=== PATIENT | male | born 1950 | race Caucasian/White ===

== ENCOUNTER 2023-08-10 10:44 | Outpatient (AMB) | payer MEDICARE, SELFPAY ==
--- NOTE | 2023-08-10 10:46 | HO.NEPHOV_ITS ---
HPI HPI Comments History of Present Illness Details I had the pleasure of seeing Aníbal in consultation for proteinuria. He is not a diabetic or hypertensive. He has been having mild proteinuria for a few years. He denies any family history of proteinuria. There is no family history of any ESRD, renal transplantation, sensorineural deafness, microscopic hematuria. Patient himself has no history of microscopic hematuria but has been having some hearing impairment. He denies joint swellings, photosensitivity, skin rashes, epistaxis, hemoptysis, hematemesis, melena, renal calculus, new bone or back pain, history of high serum calcium or pedal edema. He has no history of vascular disease or eye symptoms. His serum creatinine has been normal. He has recently had a ultrasound of the abdomen which only showed fatty liver. He has history of pulmonary nodules which had been followed up closely. He does not take any excessive nonsteroidal anti-inflammatory medications. 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 Biceps tendonitis on right Surgical History (Updated 08/10/23 @ 10:50 by Melinda Jama MA) S/P rotator cuff repair History of inguinal hernia repair Family History Mother Breast cancer Father Stroke Diabetes mellitus Social History Alcohol intake: current Patient Tobacco Use Status: Former Tobacco user Substance Use Type: Marijuana Vital Signs 08/10/23 10:50 Height 5 ft 10 in Weight 225 lb 4 oz BMI 32.3 BP 126/72 Blood Pressure Location Lt brachial Position Sitting Pulse 87 Pulse Source Pulse Oximeter Pulse Oximetry (%) 96 Oxygen Delivery Method Room Air Physical Exam Vital Signs: Last Vital Signs Pulse 87 08/10/23 10:50 BP 126/72 08/10/23 10:50 Pulse Ox 96 08/10/23 10:50 Oxygen Delivery Method Room Air 08/10/23 10:50 BMI result Body Mass Index 32.3 Const General: comfortable and no acute distress Orientation/consciousness: patient oriented x3 HEENT Head: Yes normocephalic Mouth: Normal oral and palatal mucosa present Eyes EOM: EOMs intact bilaterally Neck Neck: Yes supple Resp Auscultation: clear to auscultation bilaterally Cardio Jugular venous distension: no JVD Rate: regular rate GI Palpation (GI): Soft to palpation Auscultation: normal bowel sounds General: Yes no CVA tenderness Back/Spine/Pelvis Back: no CVA tenderness Skin General skin exam: no rashes or lesions noted Neuro General: patient oriented x3 and moves all extremities Extrem General: Yes no pedal edema Assessment & Plan Assessment & Plan (1) Proteinuria: Code(s): R80.9 - Proteinuria, unspecified Qualifiers: Proteinuria type: other Qualified Code(s): R80.8 - Other proteinuria Plan Aníbal has mild proteinuria for a long time, etiology of which has not been delineated yet. He is not a diabetic hypertensive. He recently had a ultrasound of the abdomen which only showed fatty liver. I have ordered extensive workup including 24 hour urine for protein as well as hemoglobin A1c. There is no indication for initiation of JEFF-inhibitor or ARB now. Based on data I shall decide whether he needs a renal biopsy. All these have been discussed in extensive detail. I answered all his questions. Follow-up appointment given Orders: Orders Protein, 24 Hr Urine Group Today R80.9 - Proteinuria, unspecified Proteinase 3 PR3 Antibodies Today R80.9 - Proteinuria, unspecified Myeloperoxidase Antibody Today R80.9 - Proteinuria, unspecified Neutrophil Cytoplasma Ab Today R80.9 - Proteinuria, unspecified Immunofixation Pnl, Serum Today R80.9 - Proteinuria, unspecified Phospholipase A2 Receptor Pnl Today R80.9 - Proteinuria, unspecified Prothrombin Time INR Today R80.9 - Proteinuria, unspecified Hemoglobin A1c Today R80.9 - Proteinuria, unspecified Immunofixation, Random Urine Today R80.9 - Proteinuria, unspecified Anti Glomerular Basement Memb Today R80.9 - Proteinuria, unspecified Anti DNA DS Antibody Today R80.9 - Proteinuria, unspecified Complement C3 Today R80.9 - Proteinuria, unspecified Complement C4 Today R80.9 - Proteinuria, unspecified Protein Electrophoresis, Serum Today R80.9 - Proteinuria, unspecified Hepatitis B Core Antibody Today R80.9 - Proteinuria, unspecified Hepatitis B Surface Antigen Today R80.9 - Proteinuria, unspecified Complete Blood Count Auto Diff Today R80.9 - Proteinuria, unspecified Coding Level of Care Code New Pt Level 4 (33022) Diagnoses Other proteinuria R80.8 Proteinuria type: other Results Reviewed Nephrology Results: No Data to Display
[2023-08-10 10:50] VITALS: BP 126/72; PULSE 87; O2SAT 96; BMI 32.3
== END 2023-08-10 11:45 | disposition home or self-care (01) ==
PROVIDERS: PCP Family Medicine; Visit Provider Internal Medicine Nephrology
DX: R80.8 Other proteinuria (principal)
CPT/HCPCS: 99204

== ENCOUNTER → 2023-08-10 10:44 | Outpatient (BNVA) | payer MEDICARE, SELFPAY | PROVIDERS: PCP Family Medicine; Visit Provider Internal Medicine Nephrology | DX: R80.8 Other proteinuria (principal) | CPT/HCPCS: 99202 ==

== ENCOUNTER 2023-09-07 11:55 | Outpatient (AMB) | payer MEDICARE, SELFPAY ==
[2023-09-07 12:12] VITALS: BP 132/70; PULSE 84; O2SAT 95; BMI 31.9
--- NOTE | 2023-09-07 12:12 | HO.NEPHOV_ITS ---
HPI HPI Comments History of Present Illness Details I had the pleasure of seeing Aníbal in follow up for proteinuria. He is not a diabetic or hypertensive. He has been having mild proteinuria for a few years. He denies any family history of proteinuria. There is no family history of any ESRD, renal transplantation, sensorineural deafness, microscopic hematuria. Patient himself has no history of microscopic hematuria but has been having some hearing impairment. He denies joint swellings, photosensitivity, skin rashes, epistaxis, hemoptysis, hematemesis, melena, renal calculus, new bone or back pain, history of high serum calcium or pedal edema. He has no history of vascular disease or eye symptoms. His serum creatinine has been normal. He has recently had a ultrasound of the abdomen which only showed fatty liver. He has history of pulmonary nodules which had been followed up closely. He does not take any excessive nonsteroidal anti-inflammatory medications. 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 Biceps tendonitis on right Surgical History S/P rotator cuff repair History of inguinal hernia repair Family History Mother Breast cancer Father Stroke Diabetes mellitus Social History Alcohol intake: current Patient Tobacco Use Status: Former Tobacco user Substance Use Type: Marijuana Vital Signs 09/07/23 12:12 Height 5 ft 10 in Weight 222 lb 4 oz BMI 31.9 BP 132/70 Blood Pressure Location Lt brachial Position Sitting Pulse 84 Pulse Source Pulse Oximeter Pulse Oximetry (%) 95 Oxygen Delivery Method Room Air Physical Exam Vital Signs: Last Vital Signs Pulse 84 09/07/23 12:12 BP 132/70 09/07/23 12:12 Pulse Ox 95 09/07/23 12:12 Oxygen Delivery Method Room Air 09/07/23 12:12 BMI result Body Mass Index 31.9 Assessment & Plan Assessment & Plan (1) Proteinuria: Code(s): R80.9 - Proteinuria, unspecified Qualifiers: Proteinuria type: other Qualified Code(s): R80.8 - Other proteinuria Plan Aníbal has H/O mild proteinuria for a long time. He is not a diabetic hypertensive. He recently had a ultrasound of the abdomen which only showed fatty liver. I have ordered extensive workup including 24 hour urine for protein as well as hemoglobin A1c which were acceptably normal. There is no indication for initiation of JEFF-inhibitor or ARB now. He does not need a renal biopsy now( his sister has thin membrane disease). All these have been discussed in extensive detail. I answered all his questions. Follow-up appointment given Orders: Orders UA and rflx microscopic Today R80.9 - Proteinuria, unspecified Electrolytes Today R80.9 - Proteinuria, unspecified Blood Urea Nitrogen Today R80.9 - Proteinuria, unspecified Creatinine Today R80.9 - Proteinuria, unspecified Protein Creatinine Ratio, Ur Today R80.9 - Proteinuria, unspecified Coding Level of Care Code Est Pt Level 3 (21346) Diagnoses Other proteinuria R80.8 Proteinuria type: other Results Reviewed Nephrology Results: No Data to Display
== END 2023-09-07 12:37 | disposition home or self-care (01) ==
PROVIDERS: PCP Family Medicine; Visit Provider Internal Medicine Nephrology
DX: R80.8 Other proteinuria (principal)
CPT/HCPCS: 99213

== ENCOUNTER → 2023-09-07 11:55 | Outpatient (BNVA) | payer MEDICARE, SELFPAY | PROVIDERS: PCP Family Medicine; Visit Provider Internal Medicine Nephrology | DX: R80.8 Other proteinuria (principal) | CPT/HCPCS: 99212 ==

== ENCOUNTER 2024-03-09 16:08 | Outpatient (AMB) | payer MEDICARE, SELFPAY ==
--- NOTE | 2024-03-09 16:25 | HO.NEPHOV_ITS ---
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 He is not a diabetic or hypertensive. He has been having mild proteinuria for a few years. He denies any family history of proteinuria. There is no family history of any ESRD, renal transplantation, sensorineural deafness, microscopic hematuria. Patient himself has no history of microscopic hematuria but has been having some hearing impairment. He denies joint swellings, photosensitivity, skin rashes, epistaxis, hemoptysis, hematemesis, melena, renal calculus, new bone or back pain, history of high serum calcium or pedal edema. He has no history of vascular disease or eye symptoms. His serum creatinine has been normal. He has recently had a ultrasound of the abdomen which only showed fatty liver. He has history of pulmonary nodules which had been followed up closely. He does not take any excessive nonsteroidal anti-inflammatory medications. [facility] Medical History (Updated 08/10/23 @ 11:36 by Rodolfo Sosa MD) Swelling of left parotid gland Right flank pain Pulmonary nodules Obstructive sleep apnea syndrome Microalbuminuria Inguinal hernia Hypertension Hyperlipidemia Hernia of anterior abdominal wall Degenerative joint disease of shoulder Coronary atherosclerosis due to calcified coronary lesion COPD with emphysema Biceps tendonitis on right Surgical History S/P rotator cuff repair History of inguinal hernia repair Family History Mother Breast cancer Father Stroke Diabetes mellitus Social History Alcohol intake: current Patient Tobacco Use Status: Former Tobacco user Substance Use Type: Marijuana Review of Systems Const All systems reviewed & are unremarkable except as noted in HPI and below Physical Exam Vital Signs: Last Vital Signs Pulse 92 03/09/24 16:26 BP 124/80 03/09/24 16:26 Pulse Ox 94 03/09/24 16:26 Oxygen Delivery Method Room Air 03/09/24 16:26 BMI result Body Mass Index 30.8 Const General: comfortable and no acute distress Orientation/consciousness: patient oriented x3 HEENT Head: Yes normocephalic Mouth: Normal oral and palatal mucosa present Eyes EOM: EOMs intact bilaterally Neck Neck: Yes supple Resp Auscultation: clear to auscultation bilaterally Cardio Jugular venous distension: no JVD Rate: regular rate GI Palpation (GI): Soft to palpation Auscultation: normal bowel sounds General: Yes no CVA tenderness Back/Spine/Pelvis Back: no CVA tenderness Skin General skin exam: no rashes or lesions noted Neuro General: patient oriented x3 and moves all extremities Extrem General: Yes no pedal edema Results Reviewed Nephrology Results: No Data to Display Assessment & Plan Assessment & Plan (1) Proteinuria: Code(s): R80.9 - Proteinuria, unspecified Category: Medical Qualifiers: Proteinuria type: other Qualified Code(s): R80.8 - Other proteinuria Plan Aníbal has H/O mild proteinuria for a long time. He is not a diabetic hypertensive. He recently had a ultrasound of the abdomen which only showed fatty liver. His 24 hour urine for protein was over 200 mg. Rest of W/U were acceptably normal. There is no indication for initiation of JEFF-inhibitor or ARB now, which I may initiate at next visit. He does not need a renal biopsy now( his sister has thin membrane disease). All these have been discussed in extensive detail. I answered all his questions. Follow-up appointment given Orders: Orders Protein Creatinine Ratio, Ur 6 Months R80.8 - Other proteinuria Immunofixation Pnl, Serum 6 Months R80.8 - Other proteinuria Coding Level of Care Code Est Pt Level 4 (03850) Diagnoses Other proteinuria R80.8 Proteinuria type: other
[2024-03-09 16:26] VITALS: BP 124/80; PULSE 92; O2SAT 94; BMI 30.8
== END 2024-03-09 16:52 | disposition home or self-care (01) ==
PROVIDERS: PCP Family Medicine; Visit Provider Internal Medicine Nephrology
DX: R80.8 Other proteinuria (principal)
CPT/HCPCS: 99214

== ENCOUNTER → 2024-03-09 16:08 | Outpatient (BNVA) | payer MEDICARE, SELFPAY | PROVIDERS: PCP Family Medicine; Visit Provider Internal Medicine Nephrology | DX: R80.9 Proteinuria, unspecified (principal) | CPT/HCPCS: 99212 ==

== ENCOUNTER 2024-10-05 13:41 | Outpatient (AMB) | payer MEDICARE, SELFPAY ==
--- NOTE | 2024-10-05 13:53 | HO.NEPHOV_ITS ---
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 He is not a diabetic or hypertensive. He has been having mild proteinuria for a few years. He denies any family history of proteinuria. There is no family history of any ESRD, renal transplantation, sensorineural deafness, microscopic hematuria. Patient himself has no history of microscopic hematuria but has been having some hearing impairment. He denies joint swellings, photosensitivity, skin rashes, epistaxis, hemoptysis, hematemesis, melena, renal calculus, new bone or back pain, history of high serum calcium or pedal edema. He has no history of vascular disease or eye symptoms. His serum creatinine has been normal. He has recently had a ultrasound of the abdomen which only showed fatty liver. He has history of pulmonary nodules which had been followed up closely. He does not take any excessive nonsteroidal anti-inflammatory medications. 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 Biceps tendonitis on right Surgical History S/P rotator cuff repair History of inguinal hernia repair Family History Mother Breast cancer Father Stroke Diabetes mellitus Social History Alcohol intake: current Patient Tobacco Use Status: Former Tobacco user Substance Use Type: Marijuana Review of Systems Const All systems reviewed & are unremarkable except as noted in HPI and below Physical Exam Vital Signs: Last Vital Signs Pulse 94 10/05/24 13:54 BP 110/70 10/05/24 13:54 Pulse Ox 96 10/05/24 13:54 Oxygen Delivery Method Room Air 10/05/24 13:54 BMI result Body Mass Index 30.7 Const General: comfortable and no acute distress Orientation/consciousness: patient oriented x3 HEENT Head: Yes normocephalic Mouth: Normal oral and palatal mucosa present Eyes EOM: EOMs intact bilaterally Neck Neck: Yes supple Resp Auscultation: clear to auscultation bilaterally Cardio Jugular venous distension: no JVD Rate: regular rate GI Palpation (GI): Soft to palpation Auscultation: normal bowel sounds General: Yes no CVA tenderness Back/Spine/Pelvis Back: no CVA tenderness Skin General skin exam: no rashes or lesions noted Neuro General: patient oriented x3 and moves all extremities Extrem General: Yes no pedal edema Results Reviewed Nephrology Results: No Data to Display Assessment & Plan Assessment & Plan (1) Proteinuria: Code(s): R80.9 - Proteinuria, unspecified Category: Medical Qualifiers: Proteinuria type: other Qualified Code(s): R80.8 - Other proteinuria Plan Aníbal has H/O mild proteinuria for a long time. He is not a diabetic hypertensive. He recently had a ultrasound of the abdomen which only showed fatty liver. His last 24 hour urine for protein was over 200 mg. Rest of W/U were acceptably normal. He had labs done this week which is pending. There is no indication for initiation of JEFF-inhibitor or ARB now, which I shall start based on data. He does not need a renal biopsy now( his sister has thin membrane disease). All these have been discussed in extensive detail. I answered all his questions. Follow-up appointment given Orders: Orders Creatinine Today R80.8 - Other proteinuria Blood Urea Nitrogen Today R80.8 - Other proteinuria Electrolytes Today R80.8 - Other proteinuria Protein Creatinine Ratio, Ur Today R80.8 - Other proteinuria Electrolytes 1 Year R80.8 - Other proteinuria Creatinine 1 Year R80.8 - Other proteinuria Protein Creatinine Ratio, Ur 1 Year R80.8 - Other proteinuria Blood Urea Nitrogen 1 Year R80.8 - Other proteinuria Coding Level of Care Code Est Pt Level 4 (29269) Diagnoses Other proteinuria R80.8 Proteinuria type: other
[2024-10-05 13:54] VITALS: BP 110/70; PULSE 94; O2SAT 96; BMI 30.7
== END 2024-10-05 14:14 | disposition home or self-care (01) ==
LOC: HO.HKAS 13:42
PROVIDERS: PCP Family Medicine; Visit Provider Internal Medicine Nephrology
DX: R80.8 Other proteinuria (principal)
CPT/HCPCS: 99214

== ENCOUNTER → 2024-10-05 13:41 | Outpatient (BNVA) | payer MEDICARE, SELFPAY | PROVIDERS: PCP Family Medicine; Visit Provider Internal Medicine Nephrology | DX: R80.8 Other proteinuria (principal) | CPT/HCPCS: 99212 ==

== ENCOUNTER → 2024-12-18 11:18 | Outpatient (BNV) | payer MEDICARE, SELFPAY | PROVIDERS: PCP Nurse Practitioner Family; Referring Provider Nurse Practitioner Family; Visit Provider Internal Medicine Medical Oncology | DX: D47.2 Monoclonal gammopathy (principal) | CPT/HCPCS: 99204 ==